=== PATIENT | female | born 2000 | race Caucasian/White ===

== ENCOUNTER 2018-02-20 14:25 | Emergency (ER) | payer OTHER ==
[~2018-02-20] VITALS: Ht 160 cm; Wt 98.0 kg
== END 2018-02-20 20:55 | disposition home or self-care (01) ==
LOC: ER 14:25
DX: B34.9 Viral infection, unspecified (principal)

== ENCOUNTER 2018-03-09 04:59 | Inpatient (IN) | payer OTHER ==
[~2018-03-09] VITALS: Ht 160 cm; Wt 100.7 kg
[2018-03-09] MEDS ORDERED: PRENATAL FORMU1 EAC1 PO (05:25)
== END 2018-03-12 14:09 | disposition home or self-care (01) | DRG 807 ==
LOC: LDR 04:59 → OB/GYN 03-10 19:06
PROVIDERS: ADMIT Obstetrics & Gynecology
PROC: 3E0P7VZ Introduction of Hormone into Female Reproductive, Via Natural or Artificial Opening (ICD-10-PCS; 2018-03-09)
PROC: 4A1HXCZ Monitoring of Products of Conception, Cardiac Rate, External Approach (ICD-10-PCS; 2018-03-09)
PROC: 10E0XZZ Delivery of Products of Conception, External Approach (ICD-10-PCS; principal; 2018-03-10)
PROC: 0HQ9XZZ Repair Perineum Skin, External Approach (ICD-10-PCS; 2018-03-10)
DX: O70.0 First degree perineal laceration during delivery (principal); Z37.0 Single live birth; Z3A.39 39 weeks gestation of pregnancy; Z22.330 Carrier of Group B streptococcus

== ENCOUNTER 2025-02-13 09:11 | Outpatient (CLI) | payer OTHER ==
[~2025-02-13 09:11] MED LIST: PRENATAL FORMU1 EAC1 PO
== END 2025-02-13 09:15 | disposition home or self-care (01) ==
LOC: PRENATAL 09:11
PROVIDERS: ATTEND Obstetrics & Gynecology Maternal & Fetal Medicine
DX: O36.80X0 Pregnancy with inconclusive fetal viability, not applicable or unspecified (principal); Z36.82 Encounter for antenatal screening for nuchal translucency; Z14.8 Genetic carrier of other disease; O99.211 Obesity complicating pregnancy, first trimester; Z3A.14 14 weeks gestation of pregnancy